=== PATIENT | female | born 1965 | race Caucasian/White ===

== ENCOUNTER 2020-02-16 15:55 | Emergency (ER) | payer OTHER ==
[~2020-02-16] VITALS: Ht 170.2 cm; Wt 65.8 kg
[2020-02-16] MEDS ORDERED: MENEST1.25 MG (16:24)
[2020-02-16] MEDS ORDERED: CEFADROXIL500 MG PO (18:31)
== END 2020-02-16 18:38 | disposition home or self-care (01) ==
LOC: ER 15:55
DX: H66.93 Otitis media, unspecified, bilateral (principal)